=== PATIENT | male | born 1990 | race Two or more races ===

== ENCOUNTER 2017-05-25 11:35 | Emergency (ER) | payer MEDICAID ==
[~2017-05-25] VITALS: Ht 170.2 cm; Wt 77.1 kg
[2017-05-25 12:15] VITALS: BP 136/88
[2017-05-25] MEDS ORDERED: IBUPROFEN 600 MG TAB PO ONE ×2 (12:16→12:30)
== END 2017-05-25 14:01 | disposition home or self-care (01) ==
LOC: ER 11:35
DX: J02.9 Acute pharyngitis, unspecified (principal)

== ENCOUNTER 2017-05-29 00:04 | Emergency (ER) | payer MEDICAID ==
[~2017-05-29] VITALS: Ht 170.2 cm; Wt 77.1 kg
[2017-05-29] MEDS ORDERED: cefTRIAXone SOD 1,000 MG VL IM ONE (02:45)
[2017-05-29] MEDS ORDERED: LIDOCAINE 1% HCL (LOCAL ANESTH.) INJ 20ML MDV ONE (03:33)
[2017-05-29] MEDS ORDERED: LIDOCAINE 1% HCL (LOCAL ANESTH.) INJ 20ML MDV IN ONE (03:45)
[2017-05-29 03:56] VITALS: BP 142/91
== END 2017-05-29 03:55 | disposition home or self-care (01) ==
LOC: ER 00:04
DX: J18.9 Pneumonia, unspecified organism (principal)
CPT/HCPCS: 71020; 96372; 99284; J0696; J2001